=== PATIENT | male | born 1995 | race Caucasian/White ===

== ENCOUNTER 2017-10-12 17:42 | Emergency (ER) | payer MEDICAID ==
[~2017-10-12] VITALS: Ht 193 cm; Wt 79.4 kg
[~2017-10-12 17:42] MED LIST: CEPH500T7 PO; HYDR-385 PO; IBUP-1671 PO
--- NOTE | 2017-10-12 17:51 | ER Report ---
History and Physical Time Seen By MD: 17:50 Hx. of Stated Complaint: RIGHT KNEE PAIN AFTER HITTING TREE WHILE SKIING APPROX 6 DAYS AGO. WORSENS WITH WEIGHT BEARING. HPI/ROS CHIEF COMPLAINT: Right knee pain HISTORY OF PRESENT ILLNESS: 22 year old male presents reporting right knee pain. Reports 5-6 days ago, hit a tree while snow boarding. Pain is located anteriorly in patellar region, and continues in a "band" laterally. After the initial impact, reports he was unable to put weight on extremity. The following day, he was able to put approximately 50% weight on extremity. Reports pain has been increasing since accident, especially with weight bearing, describes as "pressure". Denies numbness, tingling, erythema to area. Reports that on flexion , feels like "cable is rubbing together" laterally. Tx: Ibuprofen, ice/heat application REVIEW OF SYSTEMS: Respiratory: No cough or dyspnea Cardiovascular: No chest pain or palpitations. Gastrointestinal: No vomiting, no abdominal pain. Musculoskeletal: pain to right knee anteriorly and laterally. Neuro: denies numbness/tingling Allergies: Coded Allergies: No Known Drug Allergies (Unverified , 10/12/17) Home Meds Active Scripts Ketorolac Tromethamine (KETOROLAC TROMETHAMINE) 10 Mg Tab, 10 MG PO Q6H, #20 TAB Prov:MATTEO KOLB 10/12/17 Discontinued Scripts Ibuprofen (MOTRIN IB) 200 Mg Tablet, 3 TAB PO Q6-8H for 7 Days, #30 CAP Prov:IRMA DINH MD 06/02/17 Cephalexin 500 Mg Tab (KEFLEX 500 MG TAB) 500 Mg Tablet, 500 MG PO Q6H, #28 TAB Prov:MATTEO KOLB 05/31/17 Past Medical/Surgical History Patient has a history of right radial head fracture and multiple hand fractures. Reviewed Nurses Notes: Yes Old Medical Records Reviewed: No Smoking Status: Smoker: Status Unknown Hx Substance Use Disorder: No Hx Alcohol Use: No Constitutional Vital Sign - Last 24 Hours 10/12/17 10/12/17 10/12/17 10/12/17 17:46 17:57 18:12 18:27 Temp 98.0 Pulse 81 79 73 87 Resp 18 B/P (MAP) 135/58 Pulse Ox 97 98 93 95 O2 Delivery Room Air 10/12/17 10/12/17 10/12/17 2/23/18 18:42 18:57 19:12 19:18 Pulse 75 80 91 85 Resp 16 B/P (MAP) 138/82 (100) Pulse Ox 93 98 95 95 O2 Delivery Room Air Physical Exam General Appearance: The patient is alert, has no immediate need for airway protection and no current signs of toxicity. Respiratory: Chest is non tender, lungs are clear to auscultation. Cardiac: regular rate and rhythm. Pulses 2+, regular, posterior tibial and dorsalis pedis bilaterally. Capillary refill <2 seconds. Gastrointestinal: Abdomen is soft and non tender, no masses, bowel sounds normal. Musculoskeletal: Lower extremities: No shortening of leg length. Mild effusion to right knee, superior to patella. No patellar dislocation. No ecchymosis, warmth, or erythema to knee joint bilaterally. Tenderness to palpation on right knee, medial and lateral joint line, superior and inferior patellar tendon. Anterior drawer test, posterior drawer test, and Lachmann's negative for ACL or PCL tear. Full ROM bilaterally hip, ankle, and left knee. Decreased ROM right knee on flexion, FROM on extension. Strength 5/5 bilaterally hip, knee, and ankle. Sensations intact lower extremities. DIFFERENTIAL DIAGNOSIS: After history and physical exam differential diagnosis was considered for fracture to the fibula, patella tendon tear, lateral collateral ligament tear, knee sprain. Medical Decision Making EKG/Imaging Imaging KNEE 4 VIEW RIGHT TIBIA FIBULA RIGHT Indication: Right knee pain. Right leg pain. Trauma. Comparison: None available Findings: Right knee: 4 views. No evidence of acute fracture, dislocation, or radiopaque foreign body. No joint effusion. Normal mineralization, joint spaces, and alignment. Right tib-fib: AP and lateral views. No evidence of acute fracture, dislocation , or radiopaque foreign body. Normal mineralization, joint spaces, and alignment. IMPRESSION: Negative right knee and right tib-fib radiographs. Report Dictated By: Josué Fuentes MD at 10/12/2017 6:50 PM Report E-Signed By: Josué Fuentes MD at 10/12/2017 6:52 PM ED Course/Re-evaluation ED Course Patient was interviewed regarding chief compliant, and HPI. Review of systems including Respiratory, CV, GI, MSK, and Neuro. Physical exam included Respiratory, CV, lower extremity MSK. Tenderness to lateral aspect of right knee. Mild effusion superiorly to right patella. Decreased ROM to right knee on flexion, FROM on extension, strength 5/5. Differentials were considered for fracture of fibula, patellar tendon tear, LCL tear, and knee sprain. Plain x-rays ordered for tibia/fibula and knee view. X- rays did not yield evidence of fractures, dislocations. Knee immobilizer provided for support, and patient recommended to only remove for showers or sleep. At home care includes RICE, tramadol for pain. Recommended patient follow up with orthopedics. Decision to Disposition Date: Oct 12, 2017 Decision to Disposition Time: 19:21 Depart Departure Latest Vital Signs Vital Signs Date Time Temp Pulse Resp B/P (MAP) Pulse Ox O2 Delivery O2 Flow Rate FiO2 10/12/17 19:18 85 16 138/82 (100) 95 Room Air 10/12/17 17:46 98.0 Core Temperature (Celsius): 36.73 Impression: Primary Impression: Right knee sprain Condition: Improved Disposition: HOME OR SELF-CARE Referrals: ALEXEY SULLIVAN MD New Scripts Ketorolac Tromethamine (KETOROLAC TROMETHAMINE) 10 Mg Tab 10 MG PO Q6H, #20 TAB Prov: MATTEO KOLB 10/12/17 Patient Instructions: Knee Sprain (ED) Additional Instructions: Recommend rest, ice, elevation. Recommend knee immobilizer for support. Patient may take off to shower or sleep ; otherwise, wear immobilizer at all times. Prescribed Toradol for pain relief. May take Tylenol in addition, do not take ibuprofen or other NSAIDs. Follow up with orthopedics, call Sunday for appointment. Problem Qualifiers Primary Impression: Right knee sprain Encounter type: initial encounter Involved ligament of knee: lateral collateral ligament Qualified Codes: S83.421A - Sprain of lateral collateral ligament of right knee, initial encounter MATTEO KOLB Oct 12, 2017 17:51
--- NOTE | 2017-10-12 18:57 | RADIOLOGY IMAGING REPORT ---
FACILITY: [facility] [place] PATIENT NAME: Enrrique Elizabeth : 1995 MR: [id number] V: [id number] EXAM DATE: ORDERING PHYSICIAN: MATTEO KOLB TECHNOLOGIST: Location: [facility] Patient: Enrrique Elizabeth : 1995 Visit/Account:[id number] Date of Sevice: 10/12/2017 KNEE 4 VIEW RIGHT TIBIA FIBULA RIGHT Indication: Right knee pain. Right leg pain. Trauma. Comparison: None available Findings: Right knee: 4 views. No evidence of acute fracture, dislocation, or radiopaque foreign body. No joint effusion. Normal mineralization, joint spaces, and alignment. Right tib-fib: AP and lateral views. No evidence of acute fracture, dislocation, or radiopaque foreig n body. Normal mineralization, joint spaces, and alignment. IMPRESSION: Negative right knee and right tib-fib radiographs. Report Dictated By: Josué Fuentes MD at 10/12/2017 6:50 PM Report E-Signed By: Josué Fuentes MD at 10/12/2017 6:52 PM WSN:[id number]
--- NOTE | 2017-10-12 18:57 | RADIOLOGY IMAGING REPORT ---
FACILITY: [facility] [place] PATIENT NAME: Enrrique Elizabeth : 1995 MR: [id number] V: [id number] EXAM DATE: ORDERING PHYSICIAN: MATTEO KOLB TECHNOLOGIST: Location: [facility] Patient: Enrrique Elizabeth : 1995 Visit/Account:[id number] Date of Sevice: 10/12/2017 KNEE 4 VIEW RIGHT TIBIA FIBULA RIGHT Indication: Right knee pain. Right leg pain. Trauma. Comparison: None available Findings: Right knee: 4 views. No evidence of acute fracture, dislocation, or radiopaque foreign body. No joint effusion. Normal mineralization, joint spaces, and alignment. Right tib-fib: AP and lateral views. No evidence of acute fracture, dislocation, or radiopaque foreig n body. Normal mineralization, joint spaces, and alignment. IMPRESSION: Negative right knee and right tib-fib radiographs. Report Dictated By: Josué Fuentes MD at 10/12/2017 6:50 PM Report E-Signed By: Josué Fuentes MD at 10/12/2017 6:52 PM WSN:[id number]
[2017-10-12 19:18] VITALS: BP 138/82
[2017-10-12] MEDS ORDERED: KET10 PO (19:18)
== END 2017-10-12 19:30 | disposition home or self-care (01) ==
LOC: ER 17:54
DX: S83.421A Sprain of lateral collateral ligament of right knee, initial encounter (principal); W22.09XA Striking against other stationary object, initial encounter; Y93.23 Activity, snow (alpine) (downhill) skiing, snowboarding, sledding, tobogganing and snow tubing
CPT/HCPCS: 73564; 73590; 99283; L1830